=== PATIENT | male | born 1995 | race Caucasian/White ===

== ENCOUNTER 2019-03-05 16:04 | Emergency (ER) | payer SELFPAY ==
--- NOTE | 2019-03-05 16:16 | ED.PDOC ---
History of Present Illness - General Time Seen by Provider: 03/05/19 16:09 - History of Present Illness Initial Comments: 23 yo with reported "spider bite" on his right buttock for the past 3-4 days. No history of same. No h/o IVDU. No F/C. Nl bowels, nl PO. No N/V. Timing/Duration: other - 3-4 days Severity: mild Improving Factors: nothing Worsening Factors: nothing Associated Symptoms: denies symptoms Allergies/Adverse Reactions: Allergies NO KNOWN ALLERGY Allergy (Verified 08/26/13 01:51) Home Medications: Ambulatory Orders Permethrin 5% [Elimite] 60 gm TOP ONCE #0 tube 12/15/13 Ketorolac Tromethamine [Toradol Tabs] 10 mg PO Q6HRS #20 tab 03/05/19 Sulfa/Trimeth 800/160 (Ds) Tab [Bactrim DS] 1 tablet PO BID #14 tab 03/05/19 Review of Systems - Review of Systems Constitutional: States: no symptoms reported. Denies: chills, diaphoresis, fever, weakness EENTM: States: no symptoms reported Respiratory: States: no symptoms reported Cardiology: States: no symptoms reported Gastrointestinal/Abdominal: States: no symptoms reported Genitourinary: States: no symptoms reported Musculoskeletal: States: other - right buttock pain Skin: States: other - "spider bite" right buttock Neurological: States: no symptoms reported Endocrine: States: no symptoms reported Hematologic/Lymphatic: States: no symptoms reported Past Medical History (General) - Patient Medical History Hx Asthma: Yes Family Medical History - Family History Mother Living Status: Still Living Hx Family;Other: COPD Physical Exam - Physical Exam General Appearance: No apparent distress Neck: full range of motion, supple Respiratory: chest non-tender, lungs clear, normal breath sounds, no respiratory distress Cardiovascular/Chest: normal peripheral pulses, regular rate, rhythm Gastrointestinal/Abdominal: normal bowel sounds, non tender, soft, no organomegaly Skin Exam: other - 4 x 4 area of erythema right buttock, +fluctuant Procedures - Image Front/Back of Body: 1 - abscess - Incision and Drainage #1 Procedure and Prep: betadine prep, sterile drapes applied, pus drained, other - packed with plain 1/4" Blade Size: 11 Procedure Comments: Pt tolerated well. Departure - Departure Clinical Impression: Abscess Time of Disposition: 16:31 Disposition: Discharge to Home or Self Care Condition: Excellent Departure Forms: ED Discharge - Pt. Copy, Patient Portal Self Enrollment Instructions: Skin Abscess, Abscess Incision and Drainage (DC) Referrals: UNKNOWN,PHYSICIAN [Primary Care Provider] - 1-2 Weeks Prescriptions: Ketorolac Tromethamine [Toradol Tabs] 10 mg PO Q6HRS #20 tab Sulfa/Trimeth 800/160 (Ds) Tab [Bactrim DS] 1 tablet PO BID #14 tab Home Medications: Ambulatory Orders Permethrin 5% [Elimite] 60 gm TOP ONCE #0 tube 12/15/13 Ketorolac Tromethamine [Toradol Tabs] 10 mg PO Q6HRS #20 tab 03/05/19 Sulfa/Trimeth 800/160 (Ds) Tab [Bactrim DS] 1 tablet PO BID #14 tab 03/05/19 Comments: Please remove packing in 48 hours.
[2019-03-05] MEDS ORDERED: LIDOCAINE 1% 10 ML VIAL INJ ONE ×2 (16:17→16:20)
[2019-03-05] MEDS ORDERED: CHLORHEXIDINE GLUCONATE 4 % 15 ML UD TOP ONE (16:18)
[2019-03-05] MEDS ORDERED: IODOFORM 1/4 INCH 1 EA BTTL TOP ONE (16:23)
[2019-03-05 16:51] VITALS: TEMP 97.8
[2019-03-05 17:14] VITALS: BP 118/74; O2SAT 97
== END 2019-03-05 16:40 | disposition home or self-care (01) ==
LOC: ER 16:04
DX: L02.31 Cutaneous abscess of buttock (principal); J45.909 Unspecified asthma, uncomplicated